=== PATIENT | male | born 1955 | race Caucasian/White ===

== ENCOUNTER → 2016-08-03 | Outpatient (CLI) | payer OTHER | LOC: COL.RAD 07:57 | DX: M47.817 Spondylosis without myelopathy or radiculopathy, lumbosacral region (principal); Q76.49 Other congenital malformations of spine, not associated with scoliosis; S76.312A Strain of muscle, fascia and tendon of the posterior muscle group at thigh level, left thigh, initial encounter; M16.0 Bilateral primary osteoarthritis of hip; R10.2 Pelvic and perineal pain ==

== ENCOUNTER 2017-03-09 09:38 | Day surgery (SDC) | payer BC ==
[~2017-03-09] VITALS: Ht 185.4 cm; Wt 90.0 kg
[2017-03-09 10:21] VITALS: BP 120/88; PULSE 66; TEMP 98.7
[2017-03-09] MEDS ORDERED: PHARMASSURE ZIN50 MG PO (10:27)
[2017-03-09] MEDS ORDERED: SELENIUM PO (10:28)
[2017-03-09] MEDS ORDERED: TURMERIC500 MG PO (10:29)
[2017-03-09] MEDS ORDERED: ESSIAC TEA PO (10:30)
[2017-03-09 11:55] VITALS: BP 113/83; PULSE 60; TEMP 97.9
[2017-03-09 12:10] VITALS: BP 115/79; PULSE 58
[2017-03-09 12:25] VITALS: BP 112/77; PULSE 61
== END 2017-03-09 12:36 | disposition home or self-care (01) ==
LOC: SDCO 09:38
DX: K63.5 Polyp of colon (principal); K57.30 Diverticulosis of large intestine without perforation or abscess without bleeding; R19.5 Other fecal abnormalities; E78.00 Pure hypercholesterolemia, unspecified; Z85.46 Personal history of malignant neoplasm of prostate
CPT/HCPCS: OP; J2250; J3010; J7030